=== PATIENT | female | born 1940 | race Asian ===

== ENCOUNTER 2017-12-05 11:25 | Day surgery (SDC) | payer MEDICARE, BC ==
[2017-12-05] MEDS ORDERED: FENTAnyl 50 MCG/ML VIAL (13:40)
[2017-12-05] MEDS ORDERED: MIDAZOLAM 1 MG/ML 2 ML INJ (13:40)
[2017-12-05] MEDS ORDERED: PROPOFOL 20 ML (13:40)
== END 2017-12-05 16:25 | disposition home or self-care (01) ==
LOC: GIL 11:25
DX: Z12.11 Encounter for screening for malignant neoplasm of colon (principal); K57.90 Diverticulosis of intestine, part unspecified, without perforation or abscess without bleeding; E11.9 Type 2 diabetes mellitus without complications; I10 Essential (primary) hypertension
CPT/HCPCS: 82962